=== PATIENT | female | born 1985 | race American Indian/Alaskan Native ===

== ENCOUNTER 2016-06-14 09:52 | Emergency (ER) | payer MEDICAID ==
[2016-06-14 10:44] VITALS: BP 129/83
[2016-06-14] MEDS ORDERED: ZOFRAN ODT PO ONE (10:50)
[2016-06-14 11:18] LABS: Basophils % (Auto) 0.4 % (0.0-1.8); Eosinophils % (Auto) 1.6 % (0.0-4.3); Hematocrit 34.3 % (30.3-42.9); Hemoglobin 11.4 gm/dl (10.1-14.3); Mean Corpuscular HGB Conc 33 % (30-34); Mean Corpuscular Hemoglobin 28 pg (28-32); Mean Corpuscular Volume 86 fl (79-97); Platelet Count 192 K/mm3 (140-440); Red Blood Count 4.01 M/mm3 (3.65-5.03); Red Cell Distribution Width 16.3 % (13.2-15.2); White Blood Count 6.7 K/mm3 (4.5-11.0)
[2016-06-14 11:37] LABS: Anion Gap 16 mmol/L; BUN/Creatinine Ratio 23.33; Blood Urea Nitrogen 14 mg/dL (7-17); Calcium 9.1 mg/dL (8.4-10.2); Carbon Dioxide 23 mmol/L (22-30); Chloride 98.5 mmol/L (98-107); Glucose 80 mg/dL (65-100); Potassium 3.9 mmol/L (3.6-5.0); Sodium 134 mmol/L (137-145)
--- NOTE | 2016-06-15 00:46 | ED Elopement Review ---
ED Pt Elopement review - Results review Lab results: Laboratory Tests 06/14/16 06/14/16 11:02 11:02 WBC 6.7 RBC 4.01 Hgb 11.4 Hct 34.3 MCV 86 MCH 28 MCHC 33 RDW 16.3 H Plt Count 192 Lymph % (Auto) 16.6 [place] % (Auto) 13.3 H Eos % (Auto) 1.6 Baso % (Auto) 0.4 Lymph # 1.1 L [place] # 0.9 H Eos # 0.1 Baso # 0.0 Seg Neutrophils % 68.1 Seg Neutrophils # 4.6 Sodium 134 L Potassium 3.9 Chloride 98.5 Carbon Dioxide 23 Anion Gap 16 BUN 14 Creatinine 0.6 L Estimated GFR > 60 BUN/Creatinine Ratio 23.33 Glucose 80 Calcium 9.1 - Call Back decision Pt Call Back Decision: No action required
== END 2016-06-14 11:15 | disposition left against medical advice (07) ==
LOC: ED 09:52
DX: O21.9 Vomiting of pregnancy, unspecified (principal); R11.0 Nausea; Z3A.16 16 weeks gestation of pregnancy; Z53.21 Procedure and treatment not carried out due to patient leaving prior to being seen by health care provider
CPT/HCPCS: 36415; 80048; 85025; Q0162